=== PATIENT | male | born 1975 | race Caucasian/White ===

== ENCOUNTER 2019-08-13 15:11 | Emergency (ER) | payer BC ==
[2019-08-13] MEDS ORDERED: Penicillin V Potassium Soln 250 MG/5 ML 100 ML Bottle PO ONE (15:35)
--- NOTE | 2019-08-13 15:35 | EDM.PDOC ---
ED HPI GENERAL MEDICAL PROBLEM - General Chief Complaint: ENT Problem Stated Complaint: DENTAL COMPLAINT Time Seen by Provider: 08/13/19 15:31 Source of Information: Reports: Patient History Limitations: Reports: No Limitations - History of Present Illness INITIAL COMMENTS - FREE TEXT/NARRATIVE: The patient is an unfortunate 44-year-old male who presents the emergency department today with complaints of lower dental pain. Patient reports symptoms started 2 days ago and have progressively worsened since he describes the pain as an aching type pain that is worse with eating or drinking any liquids. Patient has no submandibular swelling and no trismus at this time reports he has had a bridge placed in that area before. Treatments [employer]: Reports: NSAIDS 9 Pain Score (Numeric/FACES): 10 - Related Data Allergies Allergy/AdvReac Type Severity Reaction Status Date / Time No Known Allergies Allergy Verified 08/13/19 15:23 Home Meds: Home Meds Acetaminophen with Codeine [Tylenol with Codeine #3 Tablet] 1 each PO Q4H PRN #12 tablet 08/13/19 [Rx] Penicillin V Potassium 500 mg PO Q6HR #28 tab 08/13/19 [Rx] methylPREDNISolone [Medrol Dose Pack] 4 mg PO ASDIRECTED #1 dospk 08/13/19 [Rx] ED ROS ENT - Review of Systems Review Of Systems: See Below Constitutional: Denies: Fever, Chills HEENT: Reports: Other (Dental pain) ED EXAM, ENT - Physical Exam Exam: See Below Exam Limited By: No Limitations General Appearance: Alert, WD/WN, Moderate Distress Mouth/Throat: Other (Tenderness to left lower first molar, moderate swelling to left mandible, no submandibular swelling, no trismus) Head: Atraumatic, Normocephalic Respiratory/Chest: No Respiratory Distress Cardiovascular: Normal Peripheral Pulses, Regular Rate, Rhythm, No Edema, No Gallop, No JVD, No Murmur, No Rub Back: Normal Inspection Extremities: Normal Inspection, Normal Range of Motion, Non-Tender, No Pedal Edema, Normal Capillary Refill Neurological: Alert, Oriented Skin: Warm, Dry Course - Vital Signs Last Recorded V/S: Last Vital Signs Temp 99.1 F 08/13/19 15:24 Pulse 77 08/13/19 15:24 Resp 16 08/13/19 15:24 BP 131/75 08/13/19 15:24 Pulse Ox 98 07/04/20 15:24 Departure - Departure Time of Disposition: 15:33 Disposition: Home, Self-Care 01 Clinical Impression: Dental abscess - Discharge Information *PRESCRIPTION DRUG MONITORING PROGRAM REVIEWED*: Yes *COPY OF PRESCRIPTION DRUG MONITORING REPORT IN PATIENT JUANI: No Prescriptions: methylPREDNISolone [Medrol Dose Pack] 4 mg PO ASDIRECTED #1 dospk Penicillin V Potassium 500 mg PO Q6HR #28 tab Acetaminophen with Codeine [Tylenol with Codeine #3 Tablet] 1 each PO Q4H PRN #12 tablet PRN Reason: Pain Referrals: PCP,None [Primary Care Provider] - Additional Instructions: Seek dentist [facility] Sepsis Event Note (ED) - Evaluation Sepsis Screening Result: No Definite Risk - Focused Exam Vital Signs: Vital Signs Temp Pulse Resp BP Pulse Ox 08/13/19 15:24 99.1 F 77 16 131/75 98
[2019-08-13] MEDS ORDERED: Penicillin V Potassium 500 MG Tab PO ONE (16:02)
== END 2019-08-13 16:21 | disposition home or self-care (01) ==
LOC: JD.ED 15:11
DX: K04.7 Periapical abscess without sinus (principal)
CPT/HCPCS: 99282; A9270